=== PATIENT | female | born 1990 | race African-American/Black ===

== ENCOUNTER 2017-04-09 12:14 | Emergency (ER) | payer MEDICAID ==
[~2017-04-09] VITALS: Ht 149.9 cm; Wt 78.0 kg
[2017-04-09] MEDS ORDERED: SODIUM CHLORIDE 0.9% 1,000 ML IV ONE (14:13)
[2017-04-09 14:20] LABS: CLARITY URINE CLEAR (CLEAR); COLOR URINE YELLOW (YELLOW); KETONES URINE NEGATIVE (NEGATIVE); LEUKOCYTE ESTERASE URINE 3+ (NEGATIVE); NITRITE URINE NEGATIVE (NEGATIVE); OCCULT BLOOD URINE NEGATIVE (NEGATIVE); PROTEIN URINE NEGATIVE (NEGATIVE)
[2017-04-09 14:24] LABS: BASOPHILS % 0.5 % (0.0-2.0); EOSINOPHILS % 1.8 % (0.0-5.0); HEMATOCRIT. 36.7 % (36.0-48.0); HEMOGLOBIN. 11.9 g/dL (12.0-16.0); LYMPHOCYTES % 17.8 % (20.0-50.0); MEAN CORPUSCULAR HEMOGLOBIN 25.6 pg (28.0-32.0); MEAN PLATELET VOLUME 7.8 fl (7.4-10.4); MONOCYTES % 5.3 % (2.0-8.0); NEUTROPHILS % 74.6 % (40.0-76.0); PLATELET 367 x1000/uL (130-400); RED BLOOD CELL COUNT 4.65 mill/uL (4.2-5.4); RED CELL DISTRIBUTION WIDTH 14.9 % (11.6-14.6)
[2017-04-09 14:39] LABS: CHLORIDE 102 mEq/L (98-107)
[2017-04-09 14:48] LABS: B-HCG QUANTITATIVE 67166 mIU/mL (<3)
[2017-04-09 15:41] VITALS: BP 135/77
[2017-04-09] MEDS ORDERED: METOCLOPRAMIDE HCL 10MG/2ML VIAL IV ONE (15:45)
== END 2017-04-09 17:00 | disposition left against medical advice (07) ==
LOC: ER 12:34
DX: O98.811 Other maternal infectious and parasitic diseases complicating pregnancy, first trimester (principal); B37.3 Candidiasis of vulva and vagina; O21.9 Vomiting of pregnancy, unspecified; O34.81 Maternal care for other abnormalities of pelvic organs, first trimester; N83.8 Other noninflammatory disorders of ovary, fallopian tube and broad ligament; Z3A.11 11 weeks gestation of pregnancy
CPT/HCPCS: 36415; 76801; 76817; 80053; 81001; 81025; 84702; 85025; 86850; 86900; 86901; 96361; 96374; 99285; J2765; J7030; Z7610

== ENCOUNTER 2017-07-03 19:06 | Observation (INO) | payer MEDICAID ==
[~2017-07-03] VITALS: Ht 149.9 cm; Wt 79.4 kg
[2017-07-03] MEDS ORDERED: PNV1TABL76 MT (20:02)
[2017-07-03] MEDS ORDERED: ACETAMINOPHEN 500MG TABLET PO NR (20:03)
== END 2017-07-03 21:15 | disposition home or self-care (01) ==
LOC: L&D 19:06
PROVIDERS: ADMIT Specialist; ATTEND Specialist
DX: O26.892 Other specified pregnancy related conditions, second trimester (principal); R10.9 Unspecified abdominal pain; R07.89 Other chest pain; Z3A.23 23 weeks gestation of pregnancy
CPT/HCPCS: 76805; G0378; 99281